=== PATIENT | male | born 2000 | race Caucasian/White ===

== ENCOUNTER 2020-04-09 08:40 | Inpatient (IN) | payer OTHER ==
[~2020-04-09] VITALS: Ht 180.3 cm; Wt 92.9 kg
[2020-04-09 09:00] VITALS: BP 134/72
[2020-04-09 09:47] VITALS: BP 134/72
--- NOTE | 2020-04-09 10:51 | NUR ---
DR JACINTO AT BEDSIDE EXAMINED PATIENT. HE SAID NO NEED FOR SURGERY.
[2020-04-09] MEDS ORDERED: cefTRIAXone 1GM/50ML D5W 50 ML IV ONE (11:30)
[2020-04-09] MEDS ORDERED: PANTOPRAZOLE 40 MG/10 ML VIAL INJ IV ONE (11:30)
[2020-04-09] MEDS ORDERED: ACETAMINOPHEN 500 MG TAB PO PRN (11:30)
[2020-04-09 12:30] VITALS: BP 134/69
[2020-04-09] MEDS ORDERED: GOLYTELY 4L KIT PO ONE (13:15)
[2020-04-09] MEDS: SODIUM CHLORIDE 0.9% 1,000 ML IV SCH (13:25)
[2020-04-09] MEDS: metroNIDAZOLE 500MG/100ML 100 ML IV SCH ×2 (15:29→21:31)
[2020-04-09 17:00] VITALS: BP 132/64
--- NOTE | 2020-04-09 20:00 | NUR ---
PATIENT IS AWAKE AND ALERT X4, AMBULATES INDEPENDENTLY. PATIENT IS SITTING UP AT BEDSIDE WATCHING TELEVISION WITH NO S/S OF DISTRESS NOTED. PATIENT DENIES PAIN. DENIES BLOOD IN STOOL TODAY. PATIENT COMPLETED GOLYTELY ORDERED (2/3). NOTED YELLOW TO CLEAR LIQUID STOOL IN TOILET WITH SMALL PARTICLES. IV FLUIDS CURRENTLY RUNNING TO LEFT AC AT 75ML/HR ORDERED.
--- NOTE | 2020-04-09 20:20 | NUR ---
IV insertion IV access obtained, via clean sterile technique by inserting 20 gauge catheter at right FA after 1 attempt. IV secured properly. No trauma to site. Patient tolerated well.
--- NOTE | 2020-04-09 20:22 | NUR ---
IV removal IV DC'd from left AC with clean sterile technique, catheter fully intact. Pressure dressing applied to site. Patient tolerated well. NOTE: Patient requesting IV be moved to another site because it is uncomfortable. IV site benign.
[2020-04-09 22:00] VITALS: BP 123/72
[2020-04-10 05:00] VITALS: BP 109/49
[2020-04-10] MEDS: SODIUM CHLORIDE 0.9% 1,000 ML IV SCH (05:57)
[2020-04-10] MEDS: metroNIDAZOLE 500MG/100ML 100 ML IV SCH (05:57)
[2020-04-10] MEDS ORDERED: GOLYTELY 4L KIT PO ONE (06:00)
[2020-04-10 06:04] LABS: Basophils # (auto) 0 10 ^3/uL (0-0.2); Basophils % (auto) 0.9 % (0.0-2.0); Eosinophils # (auto) 0.1 10 ^3/uL (0-0.8); Hematocrit 38.8 % (41.0-53.0); Hemoglobin 13.2 g/dL (13.5-17.5); Lymphocytes # (auto) 2.4 10 ^3/uL (0.4-5.4); Lymphocytes % (auto) 44.2 % (10.0-50.0); Mean Corpuscular Hemoglobin 31.5 pg (28.0-32.0); Mean Corpuscular Hgb Conc. 34.1 g/dL (32.0-36.0); Mean Corpuscular Volume 92.6 fL (80.0-100.0); Monocytes # (auto) 0.6 10 ^3/uL (0-1.3); Monocytes % (auto) 11.2 % (0.0-12.0); Neutrophils # (auto) 2.3 10 ^3/uL (1.6-8.6); Neutrophils % (auto) 41.7 % (37.0-80.0); Nucleated Red Blood Cells % 0.1 %; Platelet Count (auto) 224 10^3/uL (140-450); Red Cell Distribution Width 12.6 % (11.8-14.3); White Blood Cell 5.4 10^3/uL (4.4-10.8)
[2020-04-10 06:15] LABS: Albumin 3.6 g/dL (3.4-5.0); BUN/Creatinine Ratio 9.8; Calcium 8.8 mg/dL (8.5-10.1)
[2020-04-10 06:16] LABS: INR 1.08 (0.9-1.15); Partial Thromboplastin Time 27.2 sec (23.64-32.05)
[2020-04-10 06:18] LABS: Bilirubin, Total 0.8 mg/dL (0.2-1.0); Total Protein 6.7 g/dL (6.4-8.2)
[2020-04-10 08:00] VITALS: BP 103/76
[2020-04-10] MEDS ORDERED: cefTRIAXone 1GM/50ML D5W 50 ML IV SCH (09:00)
[2020-04-10] MEDS ORDERED: MIDAZOLAM HCL 5 MG/ML-1ML VIAL ONE (09:03)
[2020-04-10] MEDS ORDERED: SODIUM CHLORIDE LOCK 0 ML ONE (09:03)
[2020-04-10] MEDS ORDERED: SIMETHICONE 40 MG/0.6 ML ORAL DROP ONE (09:03)
[2020-04-10] MEDS ORDERED: diphenhdrAMINE HCL 50 MG/1 ML VL ONE (09:04)
[2020-04-10] MEDS ORDERED: fentaNYL CITRATE 100 MCG/2 ML VL ONE (09:04)
--- NOTE | 2020-04-10 09:13 | NUR ---
TAKEN TO PRE OP VIA BED NO SIGNS OF DISTRESS.
[2020-04-10] MEDS ORDERED: PANTOPRAZOLE 40 MG/10 ML VIAL INJ IV SCH (10:00)
[2020-04-10 10:21] VITALS: BP 133/73
== END 2020-04-10 14:00 | disposition home or self-care (01) | DRG 379 ==
LOC: CENTRAL 08:40
PROVIDERS: ADMIT Nurse Practitioner Acute Care; ATTEND Internal Medicine
DX: K62.5 Hemorrhage of anus and rectum (principal); K59.00 Constipation, unspecified; Z53.29 Procedure and treatment not carried out because of patient's decision for other reasons
CPT/HCPCS: 36415; 80053; 85025; 85610; 85730; C9113; G0378; J0696; J2250; J3490